=== PATIENT | female | born 1955 | race African-American/Black ===

== ENCOUNTER → 2018-01-15 | Day surgery (SDC) | payer OTHER ==
[2017-12-23 10:31] VITALS: BMI 18.0
[2017-12-23 10:48] VITALS: Ht 162.6 cm; Wt 49.9 kg
--- NOTE | 2017-12-23 11:09 | PAT Medication Instructions ---
Service Date Dec 23, 2017. Current Home Medication List Acetaminophen (Apap Extra Strength), 1-2 TAB PO Q6 PRN for Pain or Fever Amlodipine (Norvasc), 10 MG PO QAM Atorvastatin (Lipitor), 80 MG PO QDD B-Complex W/ C & Folic Acid (Anca-Tripp), 1 TAB PO QDL Cinacalcet (Sensipar), 30 MG PO QDD Clopidogrel (Plavix), 75 MG PO QAM Hctz/Losartan (Hyzaar 25MG/100MG), 1 TAB PO QAM Medication Instructions For Your Scheduled Surgery -Hold the following for 5 days per surgeon: Clopidogrel (Plavix), 75 MG PO QAM - Hold the following medications the morning of surgery: Hctz/Losartan (Hyzaar 25MG/100MG), 1 TAB PO QAM - Take the following medications the morning of surgery with a sip of water: Acetaminophen (Apap Extra Strength), 1-2 TAB PO Q6 PRN for Pain or Fever (if needed, can be taken up to four hours before surgery) Amlodipine (Norvasc), 10 MG PO QAM - Take the following medications as scheduled the night before surgery: Acetaminophen (Apap Extra Strength), 1-2 TAB PO Q6 PRN for Pain or Fever (if needed) Atorvastatin (Lipitor), 80 MG PO QDD B-Complex W/ C & Folic Acid (Anca-Tripp), 1 TAB PO QDL Cinacalcet (Sensipar), 30 MG PO QDD If you have any questions please call us at [phone] or [phone] or [phone]
--- NOTE | 2017-12-23 11:43 | DIAGNOSTIC IMAGING REPORT ---
CHEST 2 VIEWS ROUTINE HISTORY: Preop. COMPARISON: Chest 01/26/2015. FINDINGS: There are few small bibasilar linear densities suggesting subsegmental atelectasis or scarring. This is similar to the prior study. No new focal lung consolidations. No pleural effusions. No pneumothorax. The heart is normal in size. IMPRESSION: Mild bibasilar subsegmental atelectasis or scarring. Otherwise, no acute process within the chest. Electronically signed by: Cristino Jarquin M.D. 12/23/2017 11:42 AM Dictated Date/Time: 12/23/2017 11:40 AM
[2017-12-23 12:32] LABS: BASO % 0.4 %; BASO ABS # 0.02 K/uL (0-0.2); EOS % 1.6 %; EOS ABS # 0.09 K/uL (0-0.5); HEMATOCRIT 36.9 % (37-47); HEMOGLOBIN 12.5 g/dL (12.0-16.0); LYMPH % 40.9 %; LYMPH ABS # 2.25 K/uL (1.2-3.4); MEAN CELL VOLUME 93.4 fL (80-100); MEAN CORPUSCULAR HEMOGLOBIN 31.6 pg (25-34); MEAN CORPUSCULAR HGB CONC 33.9 g/dl (32-36); MEAN PLATELET VOLUME 9.3 fL (7.4-10.4); MONO % 12.2 %; MONO ABS # 0.67 K/uL (0.11-0.59); NEUT % 44.9 %; NEUT ABS # 2.47 K/uL (1.4-6.5); PLATELET COUNT 350 K/uL (130-400); RED CELL DISTRIBUTION WIDTH SD 51.2 fL (36.4-46.3)
[2017-12-23 12:46] LABS: PTT PATIENT 26.6 SECONDS (21.0-31.0)
[2017-12-23 15:02] LABS: CALCIUM 8.8 mg/dl (8.5-10.1); CREATININE 5.12 mg/dl (0.60-1.20); POTASSIUM 4.1 mmol/L (3.5-5.1)
[~2018-01-15] VITALS: Ht 162.6 cm; Wt 49.9 kg
[~2018-01-15] MED LIST: ACET-176 PO; AMLO-114 PO; ATOR-26 PO; ATROPINE SULFATE 0.1 MG/ML 5ML SYR IV PRN; B-COTAB97 PO; CEFAZOLIN 1000MG IV PUSH 7.5 ML IV SCH; CINA0.42 PO; CLOP1TAB15 PO; EpHEDrine SULFATE INJ 50 MG/ML AMP IV PRN; FENTANYL CITRATE INJ 50 MCG/1 ML 2 ML VIAL IV PRN; FENTANYL CITRATE INJ 50 MCG/1 ML 2 ML VIAL ONE; GELATIN SPONGE 12-7MM ONE; HEPARIN SOD (PORCINE) 1000 UNIT/ML 10 ML VIAL ONE; HYDROmorphone INJ 1 MG/ML SYR IV PRN; HYZ/10015 PO; LABETALOL HCL IV 5 MG/ML 20ML IV PRN; LIDOCAINE HCL 2% 2 ML VIAL (20MG/ML) ONE; MEPERIDINE HCL 25 MG/ML CARP IV PRN; MIDAZOLAM HCL 1 MG/ML 2ML VIAL ONE; ONDANSETRON INJ 2 MG/ML 2 ML VIAL IV PRN; ONDANSETRON INJ 2 MG/ML 2 ML VIAL ONE; OXYC-57 PO; PROPOFOL IV EMULSION 10 MG/ML 20 ML VIAL IV ONE; SODIUM CHLORIDE 0.9% 1000ML 1,000 ML IV SCH; THROMBIN FOR SOLN 20000 UNIT KIT ONE
--- NOTE | 2018-01-15 09:23 | History and Physical ---
History & Physical Date of Service Jan 15, 2018. History & Physical History & Physical CC: Venous aneurysm left upper arm fistula HPI: Patient is a 59 yo female with severe PAD post bypass. She is on dialysis with an enlarging venous aneurysm of her left upper arm av fistula. She had a venous aneurysm fixed last year without difficulty PATIENT'S ALLERGIES INCLUDE ASPIRIN. Her home medications were reconciled in the chart and include the following; amlodipine, amoxicillin, Plavix, Lipitor, Anca-Tripp oral tables and Renvela. Patient's past medical history is positive for arthritis, coronary artery disease, carotid stenosis, dementia associated with alcohol use, and unknown time period of a history of DVT, hyperlipidemia, hypertension, peripheral arterial disease, popliteal artery aneurysm, and end-stage renal disease. Patient's past surgical history is positive for a fistula placement of her left upper extremity, hernia repair, a right fem-pop bypass, a right carotid endarterectomy, dental extractions and apparently endovascular left leg stent placement. Patient's family history is positive for Alzheimer's disease in her grandmother , arthritis in an aunt and sister, heart attack in her grandfather, hypertension in her mother, ovarian cancer in an aunt and throat cancer in an unknown family member. Patient's social history is positive for current and ongoing tobacco use. Patient does continue to smoke approximately half a pack of cigarettes on a daily basis. Patient denies alcohol or drug use presently. In this patient's current situation is complete reliance on the care of her sister and brother-in- law. They verify that the patient is no longer drinking alcohol and not using any drugs. Patient's review of systems is positive for chronic fatigue. Patient denies any fevers, sweats, weight loss, or exercise intolerance, other than her short walking distance. Patient denies abnormal moles or rashes, vision changes or photophobia, ear pain, sinus problems or sore throat, cough, short of breath, hemoptysis or wheezing, chest pains, palpitations, edema or syncope, abdominal pain, nausea, vomiting, diarrhea, constipation, headaches, dizziness, weakness, or seizures. On physical exam, patient's vital signs today are as follows; a blood pressure of 124/84 with a heart rate of 100 and a respiratory rate of 16. Patient weighs 109 pounds. Constitutional: In general, patient is a thin, chronically ill-appearing middle-aged female in no acute distress. Patient ambulates without assistance. She is active, alert and oriented x3 with vague and inconsistent memory. Her head is normocephalic and atraumatic. Her eyes are EOMI. Her ENMT exam demonstrates no hearing loss, rhinorrhea, or pharyngeal erythema. Patient is noted to have complete dental extractions. Her neck is supple, nontender, with a midline trachea, without masses or crepitus. Patient does demonstrate a right-sided carotid endarterectomy scar, a very old scar. Her lungs are clear bilaterally and patient demonstrates no dyspnea. Breath sounds are decreased significantly throughout. The cardiovascular exam demonstrates a nondisplaced apical impulse with a regular rate and rhythm without murmurs, lifts, heaves, thrills or gallops and peripheral pulses are full and equal in all extremities, unless otherwise noted. Specifically, they are normal in her carotid and brachial area. They are decreased in her left radial, normal in her right radial. Patient by chance is also noted to have a left upper arm arteriovenous fistula which demonstrates an excellent thrill and bruit. Patient demonstrates palpable femoral pulses. Her abdomen is soft and nontender with normoactive bowel sounds in all 4 quadrants without guarding or rebound. There is no flank or CVA tenderness. Her musculoskeletal exam demonstrates decreased tone and strength for age. Her bilateral upper extremities demonstrate no cyanosis, edema, clubbing, varicosities or ulcers. There is left upper arm av fistula with a large venous aneurysm. Her bilateral lower extremities demonstrate no cyanosis, edema, clubbing, varicosities or ulceration. There is no mottling or gangrene noted. Neurologically, patient has grossly intact cranial nerves and grossly intact sensation. 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 Status post femoral popliteal artery bypass. Carotid artery disease. Plan: Pt admitted for revision of her left upper arm av fistula with possible venorrhaphy. Procedure, risks, benefits, and alternatives were discussed with pt and family. They express understanding and agreement.
[2018-01-15 11:29] VITALS: BP 171/72; PULSE 82; TEMP 37.1; O2SAT 97
[2018-01-15 12:36] LABS: CALCIUM 8.7 mg/dl (8.5-10.1); CREATININE 4.71 mg/dl (0.60-1.20)
[2018-01-15] MEDS: LIDOCAINE HCL 1% 20 ML VIAL ONE (12:48)
[2018-01-15] MEDS: BUPIVACAINE/EPINEPHRINE 0.5% MPF 1:200,000 30 ML VIAL ONE (12:48)
--- NOTE | 2018-01-15 15:00 | [facility] Post Operative Brief Note ---
Immediate Operative Summary Operative Date Jan 15, 2018. Pre-Operative Diagnosis Venous aneurysm of left upper arm arterio-venous fistula Post-Operative Diagnosis Venous aneurysm left arm arterio-venous fistula Procedure(s) Performed Revision of left arm fistula with venorrhaphy Surgeon Dr. Escalera Veneer Jointer Surgeon(s) Dr. Chu Estimated Blood Loss 20cc Findings Consistent with Post-Op Diagnosis Specimens none Drains None Complication(s) none Disposition Accompanied Pt To Recover: no Disposition: Recovery Room / PACU
--- NOTE | 2018-01-15 15:11 | Discharge Instructions ---
Discharge Instructions Date of Service Jan 15, 2018. Visit Reason for Visit: Venous Aneurysm Discharge Discharge Diagnosis / Problem: Venous aneurysm left arm fistula Discharge Goals Goal(s): Therapeutic intervention Activity Recommendations Activity Limitations: per Instructions/Follow-up section Anesthesia . Post Anesthesia Instructions: If you have had General Anesthesia or IV Sedation: * Do not drive today. * Resume driving when surgeon permits. * Do not make important decisions or sign legal documents today. * Call surgeon for: 1. Temperature elevations greater than 101 degrees F. 2. Uncontrollable pain. 3. Excessive bleeding. 4. Persistent nausea and vomiting. 5. Medication intolerance (nausea, vomiting or rash). * For nausea and vomiting use only clear liquids such as: tea, soda, bouillon until nausea subsides, then gradually increase diet as tolerated. * If you have any concerns or questions, call your surgeon's office. If physician is unavailable and it is an emergency, call 911 or go to the nearest emergency room. . Instructions / Follow-Up Instructions / Follow-Up Call [phone] to schedule a follow up appointment if one not already scheduled. May use fistula for dialysis above and below incision.\\ Take this to dialysis with you and show to nurses. ACTIVITY RECOMMENDATIONS: See Above SPECIAL CARE INSTRUCTIONS: Call your doctor if: * Temperature above 101 degrees * Pain not relieved by pain medicine ordered * There is increased drainage or redness from any incision * You have any unanswered questions or concerns. Diet Recommendations Recommended Home Diet: resume previous diet Procedures Procedures Performed: Revision of left arm fistula with venorrhaphy Pending Studies Studies pending at discharge: no Medical Emergencies . Who to Call and When: Medical Emergencies: If at any time you feel your situation is an emergency, please call 911 immediately. . Non-Emergent Contact Non-Emergency issues call your: Surgeon . . "Provider Documentation" section prepared by Dillon Escalera. .
--- NOTE | 2018-01-15 15:43 | Anesthesiology Progress Note ---
Anesthesia Post Op Note Date & Time Jan 15, 2018 at 15:43 Vital Signs Pain Intensity: 0 Vital Signs Past 12 Hours Date Time Temp Pulse Resp B/P (MAP) Pulse Ox O2 Delivery O2 Flow Rate FiO2 01/15/18 15:37 36.5 111/69 01/15/18 15:36 74 13 01/15/18 15:36 74 13 01/15/18 15:31 65 20 01/15/18 15:31 65 20 94 01/15/18 15:30 124/77 01/15/18 15:26 63 10 01/15/18 15:26 70 10 106/62 01/15/18 15:24 126/79 01/15/18 15:21 36.4 69 14 126/79 96 Oxymask 6 01/15/18 11:29 37.1 82 16 171/72 (105) 97 Room Air Notes Mental Status: alert / awake / arousable, participated in evaluation Pt Amnestic to Procedure: Yes Nausea / Vomiting: adequately controlled Pain: adequately controlled Airway Patency, RR, SpO2: stable & adequate BP & HR: stable & adequate Hydration State: stable & adequate Anesthetic Complications: no major complications apparent
[2018-01-15 15:45] VITALS: BP 108/65; PULSE 71; TEMP 36.6; O2SAT 92
[2018-01-15 16:15] VITALS: BP 117/77; PULSE 80; TEMP 36.7; O2SAT 93
--- NOTE | 2018-01-15 23:38 | OPERATIVE REPORT ---
DATE OF OPERATION: 01/15/2018 PREOPERATIVE DIAGNOSIS: End-stage renal disease on hemodialysis with aneurysmal left upper extremity arteriovenous fistula. POSTOPERATIVE DIAGNOSIS: Same. PROCEDURE: Revision of left brachiocephalic fistula with venorrhaphy. SURGEON: Dillon Escalera MD PURCHASER: Nancy Chu MD ANESTHESIA: Local plus conscious sedation. ESTIMATED BLOOD LOSS: 20. FLUIDS: 500. URINE OUTPUT: Not recorded. COMPLICATIONS: None apparent. CONDITION: Stable to PACU. INDICATIONS: Ms. Coreen Crisostomo is a 62-year-old female who has been with end-stage renal disease. She has been on hemodialysis for years via left upper extremity brachiocephalic fistula. She has previously undergone a revision of this fistula for venous aneurysm. She represents with new venous aneurysms with some skin changes. She was advised the risks and benefits of undergoing this said procedure and agreed to undergo above procedure. DESCRIPTION OF THE PROCEDURE: The patient was brought to the operative suite. She was prepped and draped in the usual fashion. A timeout occurred. She had incision made over her AV fistula in the areas of 2 venous aneurysms. This included some of the threatened skin. This was deepened and the fistula was dissected out. The patient was then systemically heparinized with 2000 units of IV heparin. Clamps were placed proximally and distally. The more distal aneurysm was addressed first. A venotomy was made and this was extended with Jaime. The vein was trimmed and resewn together with a running 5-0 Prolene to decrease the width. This was tested for hemostasis and hemostasis was obtained. Attention was turned to the more proximal and larger of the aneurysms. There was redundant vein. The fistula was transected just distal to the aneurysmal portion of the AV fistula. Redundant vein was trimmed out. The vein was then fashioned to about the same size as the more distal fistula. This was sewn together with a running 5-0 Prolene. The 2 ends of the fistula were then anastomosed together in an end-to-end fashion. This was tested for hemostasis. Once hemostasis was obtained, the incision was then closed with 3-0 Vicryls and briana. The patient was then transported to the PACU in stable condition. She tolerated the procedure well. Dr. Dillon Escalera was present and scrubbed for the entirety of this case. I attest to the content of the Intraoperative Record and any orders documented therein. Any exception s are noted below.
== END | disposition home or self-care (01) ==
LOC: C.ACU 11:00
PROVIDERS: ATTEND Surgery Vascular Surgery
DX: T82.898A Other specified complication of vascular prosthetic devices, implants and grafts, initial encounter (principal); Y83.2 Surgical operation with anastomosis, bypass or graft as the cause of abnormal reaction of the patient, or of later complication, without mention of misadventure at the time of the procedure; I12.0 Hypertensive chronic kidney disease with stage 5 chronic kidney disease or end stage renal disease; M19.90 Unspecified osteoarthritis, unspecified site; I25.10 Atherosclerotic heart disease of native coronary artery without angina pectoris; F10.97 Alcohol use, unspecified with alcohol-induced persisting dementia; I77.9 Disorder of arteries and arterioles, unspecified; F17.210 Nicotine dependence, cigarettes, uncomplicated; E78.5 Hyperlipidemia, unspecified; I10 Essential (primary) hypertension; I73.9 Peripheral vascular disease, unspecified; N18.6 End stage renal disease; Z99.2 Dependence on renal dialysis; Z86.718 Personal history of other venous thrombosis and embolism; Z79.899 Other long term (current) drug therapy; Z79.02 Long term (current) use of antithrombotics/antiplatelets; Z82.61 Family history of arthritis; Z82.49 Family history of ischemic heart disease and other diseases of the circulatory system; Z80.41 Family history of malignant neoplasm of ovary; Z80.8 Family history of malignant neoplasm of other organs or systems